=== PATIENT | male | born 1960 | race Hispanic/Latino ===

== ENCOUNTER 2019-05-24 09:47 | Inpatient (IN) | payer OTHER ==
[~2019-05-24] VITALS: Ht 177.8 cm; Wt 117.0 kg
[2019-05-24] MEDS ORDERED: ASPIRIN 325 MG TABLET ONE (10:13)
[2019-05-24 10:32] LABS: BASOPHILS % (AUTO) 0.4 % (0.0-5.0); EOSINOPHILS % (AUTO) 2.8 % (0.0-8.0); HEMATOCRIT 39.9 % (42-54); LYMPHOCYTES % (AUTO) 28.9 % (21.0-51.0); MEAN CORPUSCULAR HEMOGLOBIN 28.2 pg (27.0-33.0); MEAN CORPUSCULAR VOLUME 82.8 fL (79-99); MONOCYTES % (AUTO) 7.8 % (3.0-13.0); NEUTROPHILS % (AUTO) 60.1 % (40.0-77.0); PLATELET COUNT (AUTO) 206 K/uL (130-400); RED BLOOD CELL COUNT(AUTO) 4.82 MIL/uL (4.50-6.20); RED CELL DISTRIBUTION WIDTH 14.9 % (11.0-15.5); WHITE BLOOD COUNT (AUTO) 9.6 K/uL (4.8-10.8)
[2019-05-24 10:38] LABS: CREATININE 0.8 mg/dL (0.5-1.5); POTASSIUM 3.4 mmol/L (3.5-5.1)
[2019-05-24 10:41] LABS: INR 0.97 (0.85-1.15); PARTIAL THROMBOPLASTIN TIME 25.8 SEC (26.3-35.5); PROTHROMBIN TIME 10.2 SEC (9.6-11.6)
[2019-05-24 10:43] LABS: ALBUMIN 3.5 g/dL (3.5-5.0); BILIRUBIN,TOTAL 0.6 mg/dL (0.2-1.0); TOTAL PROTEIN, SERUM 6.3 g/dL (6.0-8.3)
[2019-05-24] MEDS ORDERED: SODIUM CHLORIDE 0.9% 100 ML IV ONE (10:49)
[2019-05-24] MEDS ORDERED: DILTIAZEM HCL 125 MG/25 ML VIAL IV ONE (10:49)
[2019-05-24 11:00] LABS: B-TYPE NATRIURETIC PEPTIDE 213 pg/mL (0-100)
[2019-05-24] MEDS ORDERED: METOPROLOL TARTRATE 1 MG/ML 5ML VIAL IV ONE (11:33)
[2019-05-24] MEDS ORDERED: METOPROLOL TARTRATE 1 MG/ML 5ML VIAL IV PRN (13:45)
[2019-05-24] MEDS ORDERED: POTASSIUM CHLORIDE 10% ELIXIR 20 MEQ/15 ML UDCUP PO SCH (13:45)
[2019-05-24] MEDS: POTASSIUM CHLORIDE 10% ELIXIR 20 MEQ/15 ML UDCUP PO SCH (13:45)
[2019-05-24] MEDS: FUROSEMIDE 10 MG/ML 2ML VIAL IV SCH (13:45)
[2019-05-24] MEDS ORDERED: HYDROCODONE/ACETAMINOPHEN 5/325 MG TAB PO PRN (13:45)
[2019-05-24] MEDS ORDERED: ACETAMINOPHEN 325 MG TAB PO PRN (13:45)
[2019-05-24] MEDS ORDERED: LACTULOSE 20 GM/30 ML UDCUP PO PRN (13:45)
[2019-05-24] MEDS ORDERED: LIDOCAINE HCL-MPF 1% 2ML VIAL IV PRN (14:00)
[2019-05-24] MEDS ORDERED: POTASSIUM CHLORIDE 20MEQ/100ML 100 ML IV PRN (14:00)
[2019-05-24] MEDS ORDERED: IOHEXOL 350 MG/ML 100ML INFUS..BTL IV ONE (14:11)
[2019-05-24] MEDS ORDERED: METOPROLOL TARTRATE 25 MG TAB ONE ×2 (15:30→21:57)
[2019-05-24] MEDS ORDERED: FUROSEMIDE 10 MG/ML 2ML VIAL ONE (15:31)
[2019-05-24] MEDS ORDERED: POTASSIUM CHLORIDE 10% ELIXIR 20 MEQ/15 ML UDCUP ONE (15:49)
[2019-05-24] MEDS: INSULIN HUMULIN R 100 UNIT/ML 3ML SQ SCH ×2 (16:30→21:00)
[2019-05-24] MEDS ORDERED: POTASSIUM CHLORIDE 20 MEQ ERTAB PO ONE (19:52)
[2019-05-24] MEDS: METOPROLOL TARTRATE 25 MG TAB PO SCH (21:00)
[2019-05-24] MEDS: FAMOTIDINE/PF 20 MG/2 ML VIAL IV SCH (21:00)
[2019-05-24] MEDS ORDERED: FAMOTIDINE/PF 20 MG/2 ML VIAL IV ONE (21:57)
[2019-05-24 22:30] VITALS: BP 138/84
[2019-05-24 23:27] VITALS: BP 126/93
[2019-05-24] MEDS ORDERED: METF500S7 PO (23:32)
[2019-05-24] MEDS ORDERED: LISI-613 PO (23:32)
[2019-05-24] MEDS ORDERED: AMLO5TAB9 PO (23:32)
[2019-05-24] MEDS ORDERED: ATOR10 PO (23:32)
[2019-05-25] MEDS: FUROSEMIDE 10 MG/ML 2ML VIAL IV SCH ×2 (01:45→17:01)
[2019-05-25 03:46] VITALS: BP 118/75
[2019-05-25 04:58] LABS: HEMATOCRIT 39.2 % (42-54); MEAN CORPUSCULAR HEMOGLOBIN 27.7 pg (27.0-33.0); MEAN CORPUSCULAR HGB CONC 33.7 g/dL (32.0-36.0); NUCLEATED RED BLOOD CELLS 0.1 % (0.0-0.19); PLATELET COUNT (AUTO) 202 K/uL (130-400); RED BLOOD CELL COUNT(AUTO) 4.77 MIL/uL (4.50-6.20); WHITE BLOOD COUNT (AUTO) 10.4 K/uL (4.8-10.8)
[2019-05-25 05:01] LABS: HEMOGLOBIN A1C 6.8 % (4.0-6.0)
[2019-05-25 05:18] LABS: CREATININE 0.9 mg/dL (0.5-1.5); POTASSIUM 3.9 mmol/L (3.5-5.1)
[2019-05-25] MEDS: INSULIN HUMULIN R 100 UNIT/ML 3ML SQ SCH ×4 (07:00→21:00)
[2019-05-25 07:22] VITALS: BP 126/86
[2019-05-25] MEDS: METOPROLOL TARTRATE 25 MG TAB PO SCH (08:59)
[2019-05-25] MEDS: FAMOTIDINE/PF 20 MG/2 ML VIAL IV SCH ×2 (08:59→20:53)
[2019-05-25] MEDS ORDERED: ENOXAPARIN SODIUM 40 MG/0.4 ML SYRINGE SQ SCH (09:00)
[2019-05-25] MEDS: AMLODIPINE BESYLATE 5 MG TAB PO SCH (11:21)
[2019-05-25 11:55] VITALS: BP 135/90
[2019-05-25] MEDS: POTASSIUM CHLORIDE 10% ELIXIR 20 MEQ/15 ML UDCUP PO SCH (12:39)
[2019-05-25 15:10] VITALS: BP 147/75
--- NOTE | 2019-05-25 17:45 | NUR ---
DC PLAN VISITED WITH PATIENT. PATIENT LIVES WITH SPOUSE. INDEPENDENT ABLE TO PERFORM ADL'S. PATIENT HAS NO SERVICES OR DME'S. FEELS SAFE TO RETURN. Addendum: 05/25/19 at 1746 by RADHA VILLALBA RN CM Amended: Links added.
[2019-05-25] MEDS: APIXABAN 5 MG TABLET PO SCH (20:53)
[2019-05-25] MEDS: METOPROLOL TARTRATE 50 MG TAB PO SCH (20:59)
[2019-05-25 21:00] VITALS: BP 154/85
--- NOTE | 2019-05-25 21:00 | NUR ---
PT IS STABLE AT THIS TIME. AA03. PERRLA. NO PAIN STATED. PT AT BEDSIDE. PT INQUIRING ABOUT DISCHARGE. PENDING TO DR. GALINDO. MEDICATIONS TAKEN DIRECTED. PT AMBULATORY. CALL LIGHT IN REACH. BED IN LOWEST POSITION.
[2019-05-25 23:30] VITALS: BP 108/66
[2019-05-26 04:34] VITALS: BP 113/65
[2019-05-26] MEDS: FUROSEMIDE 10 MG/ML 2ML VIAL IV SCH (05:20)
[2019-05-26] MEDS: INSULIN HUMULIN R 100 UNIT/ML 3ML SQ SCH (06:06)
[2019-05-26 07:40] VITALS: BP 127/76
[2019-05-26] MEDS ORDERED: APIX5TAB PO (07:55)
[2019-05-26] MEDS ORDERED: METO50 PO (07:55)
[2019-05-26] MEDS: METOPROLOL TARTRATE 50 MG TAB PO SCH (08:34)
[2019-05-26] MEDS: APIXABAN 5 MG TABLET PO SCH (08:34)
[2019-05-26] MEDS: FAMOTIDINE/PF 20 MG/2 ML VIAL IV SCH (08:34)
[2019-05-26] MEDS: AMLODIPINE BESYLATE 5 MG TAB PO SCH (08:35)
--- NOTE | 2019-05-26 08:51 | NUR ---
discharge Pt discharged as ordered by MD. Instructions given, verbalized understanding. Appointment with Dr. Mckenna in 2 weeks made and given to pt. Morning meds given. Telemetry pack removed. Peripheral IV removed. Taken by wheelchair to lobby in no distress, spouse at bedside.
== END 2019-05-26 08:50 | disposition home or self-care (01) | DRG 308 ==
LOC: EDH 09:47 → EDHIP 13:39 → 2DH 22:09
PROVIDERS: ADMIT Family Medicine; ATTEND Family Medicine
DX: I48.91 Unspecified atrial fibrillation (principal); I50.21 Acute systolic (congestive) heart failure; I11.0 Hypertensive heart disease with heart failure; E11.9 Type 2 diabetes mellitus without complications; E87.6 Hypokalemia; E78.5 Hyperlipidemia, unspecified; Z51.5 Encounter for palliative care; K80.20 Calculus of gallbladder without cholecystitis without obstruction; E66.01 Morbid (severe) obesity due to excess calories; Z68.37 Body mass index [BMI] 37.0-37.9, adult; Z72.0 Tobacco use; Z91.19 Patient's noncompliance with other medical treatment and regimen
CPT/HCPCS: 36415; 71045; 71275; 80048; 80053; 80061; 82550; 82948; 83036; 83880; 84484; 85025; 85027; 85378; 85610; 85730; 93005; 93306; 93880; G0378; J1650; J1940; J3490; Q9967

== ENCOUNTER → 2019-07-08 | Outpatient (CLI) | payer OTHER ==
[~2019-07-08] MED LIST: AMLO5TAB9 PO; APIX5TAB PO; ATOR10 PO; LISI-613 PO; METF500S7 PO; METO50 PO
== END | disposition home or self-care (01) ==
LOC: SHCH 11:13
PROVIDERS: ATTEND Internal Medicine Cardiovascular Disease
DX: I48.0 Paroxysmal atrial fibrillation (principal)
CPT/HCPCS: 93306

== ENCOUNTER → 2019-07-14 | Outpatient (CLI) | payer OTHER ==
[~2019-07-14] MED LIST changes: +REGADENOSON 0.4 MG/5 ML PF SYG IVP SCH
== END | disposition home or self-care (01) ==
LOC: SHCH 08:03
PROVIDERS: ATTEND Internal Medicine Cardiovascular Disease
DX: I11.0 Hypertensive heart disease with heart failure (principal); I50.9 Heart failure, unspecified
CPT/HCPCS: 78452; 93017; 96374; A9500 ×2; J2785

== ENCOUNTER → 2020-12-25 | Outpatient (CLI) | payer OTHER ==
[~2020-12-25] MED LIST changes: +AMLO-257 PO; -AMLO5TAB9 PO; -LISI-613 PO; +LISI20TA24 PO; -REGADENOSON 0.4 MG/5 ML PF SYG IVP SCH
== END | disposition home or self-care (01) ==
LOC: SHCH 13:13
PROVIDERS: ATTEND Internal Medicine Cardiovascular Disease
DX: I10 Essential (primary) hypertension (principal); I48.0 Paroxysmal atrial fibrillation; I87.2 Venous insufficiency (chronic) (peripheral); R60.9 Edema, unspecified; E66.9 Obesity, unspecified; E78.5 Hyperlipidemia, unspecified; E11.9 Type 2 diabetes mellitus without complications; R55 Syncope and collapse
CPT/HCPCS: 93306; 93356; 93970